=== PATIENT | male | born 2000 | race Caucasian/White ===

== ENCOUNTER → 2022-04-12 | Outpatient (CLI) | payer OTHER | LOC: MHCPAIN 09:50 | DX: M53.3 Sacrococcygeal disorders, not elsewhere classified (principal); M54.16 Radiculopathy, lumbar region; M47.817 Spondylosis without myelopathy or radiculopathy, lumbosacral region | CPT/HCPCS: G0463 ==

== ENCOUNTER → 2022-04-24 | Outpatient (CLI) | payer OTHER | LOC: MHCPAIN 10:07 | DX: M47.817 Spondylosis without myelopathy or radiculopathy, lumbosacral region (principal); M53.3 Sacrococcygeal disorders, not elsewhere classified; M54.16 Radiculopathy, lumbar region | CPT/HCPCS: J1100; Q9967 ==

== ENCOUNTER → 2022-05-23 | Outpatient (CLI) | payer OTHER | LOC: MHCPAIN 13:50 | DX: M47.817 Spondylosis without myelopathy or radiculopathy, lumbosacral region (principal); M53.3 Sacrococcygeal disorders, not elsewhere classified; M54.50 Low back pain, unspecified | CPT/HCPCS: G0463 ==

== ENCOUNTER → 2022-07-03 | Outpatient (CLI) | payer OTHER | LOC: MHCPAIN 10:24 | DX: M47.817 Spondylosis without myelopathy or radiculopathy, lumbosacral region (principal); M54.50 Low back pain, unspecified; M53.3 Sacrococcygeal disorders, not elsewhere classified | CPT/HCPCS: G0463 ==